=== PATIENT | female | born 1965 | race Caucasian/White ===

== ENCOUNTER 2019-03-09 12:34 | Emergency (ER) | payer MEDICAID, OTHER ==
[~2019-03-09] VITALS: Ht 167.6 cm; Wt 63.5 kg
[2019-03-09] MEDS ORDERED: SODIUM CHLORIDE 0.9% 1,000 ML IV ONE ×2 (12:57)
[2019-03-09] MEDS ORDERED: diphenhdrAMINE HCL 50 MG/1 ML VL IV ONE (13:00)
[2019-03-09 13:29] LABS: Basophils # (auto) 0 uL; Basophils % (auto) 0.2 % (0.0-2.0); Eosinophils # (auto) 0 uL; Hematocrit 36.7 % (36.0-46.0); Hemoglobin 11.9 g/dL (12.2-16.2); Lymphocytes % (auto) 6.9 % (10.0-50.0); Mean Corpuscular Hemoglobin 28.3 pg (28.0-32.0); Mean Corpuscular Hgb Conc. 32.4 g/dL (32.0-36.0); Mean Corpuscular Volume 87.2 fL (80.0-100.0); Monocytes # (auto) 0.6 uL; Monocytes % (auto) 3.9 % (0.0-12.0); Neutrophils # (auto) 12.6 uL; Platelet Count (auto) 316 10^3/uL (140-450); Red Blood Cells 4.21 10^6/uL (4.0-5.20); Red Cell Distribution Width 15.6 % (11.8-14.3); White Blood Cell 14.2 10^3/uL (4.4-10.8)
[2019-03-09 13:39] LABS: Albumin 4.1 g/dL (3.4-5.0); BUN/Creatinine Ratio 15.5; Calcium 8.4 mg/dL (8.5-10.1)
[2019-03-09 13:42] LABS: Bilirubin, Total 0.4 mg/dL (0.2-1.0); Total Protein 8.2 g/dL (6.4-8.2)
[2019-03-09] MEDS ORDERED: HALOPERIDOL LACTATE 5 MG/ML INJ VIAL ONE (13:45)
[2019-03-09 13:49] LABS: Urine Amorphous Crystal MOD /hpf (None Seen); Urine Bacteria MOD /hpf (None Seen); Urine Blood 3+ /uL (Negative); Urine Mucus FEW (None Seen); Urine Specific Gravity 1.014 (1.001-1.035); Urine WBC 191 /hpf (0 - 5); Urine WBC Clumps PRESENT /hpf (None Seen)
[2019-03-09 13:56] LABS: Potassium 2.7 mmol/L (3.5-5.1)
[2019-03-09 13:59] LABS: Barbiturate Scree,Urine NEGATIVE (NEGATIVE); Benzodiazephine Screen, Urine NEGATIVE (NEGATIVE); Cannabinoid Screen, Urine POSITIVE (NEGATIVE); Cocaine Screen, Urine NEGATIVE (NEGATIVE); Opiate Scree,Urine NEGATIVE (NEGATIVE); Phencyclidine Screen, Urine NEGATIVE (NEGATIVE)
[2019-03-09] MEDS ORDERED: LORazepam 2MG/ML-1ML VIAL IV ONE (14:00)
[2019-03-09] MEDS ORDERED: POTASSIUM EFFERVESENT TAB 25 MEQ PO ONE (14:15)
[2019-03-09 14:17] LABS: Amphetamine Screen, Urine POSITIVE (NEGATIVE)
[2019-03-09] MEDS ORDERED: POTASSIUM CHL 20MEQ/100ML 100 ML IV ONE (14:30)
[2019-03-09] MEDS ORDERED: LABETALOL HCL 5 MG/ML ML 20ML VIAL IV ONE (14:30)
[2019-03-09] MEDS ORDERED: MIDAZOLAM DRIP 50 mg/50mL 50 ML IV ONE (14:41)
[2019-03-09] MEDS ORDERED: ETOMIDATE (2MG/ML) 20ML VIAL IV ONE ×2 (14:42→15:15)
[2019-03-09] MEDS ORDERED: SUCCINYLCHOLINE CHLORIDE 20 MG/ML 10ML VIAL IV ONE ×2 (14:42→15:15)
[2019-03-09] MEDS ORDERED: PROPOFOL 100 ML IV ONE (15:08)
[2019-03-09] MEDS ORDERED: MIDAZOLAM DRIP 50 mg/50mL 50 ML IV SCH (15:10)
[2019-03-09] MEDS ORDERED: PROPOFOL 100 ML IV SCH (15:10)
[2019-03-09 15:16] VITALS: BP 136/82
[2019-03-09] MEDS ORDERED: HALOPERIDOL LACTATE 5 MG/ML INJ VIAL IM ONE (15:30)
== END 2019-03-09 15:46 | disposition short-term general hospital (02) ==
LOC: EDBD 12:34 → ER 12:42
DX: I60.9 Nontraumatic subarachnoid hemorrhage, unspecified (principal); F15.99 Other stimulant use, unspecified with unspecified stimulant-induced disorder; E86.0 Dehydration
CPT/HCPCS: 31500; 36415; 70450; 71045; 80053; 80307; 81001; 85025; 93005; 96361; 96372; 96374; 99291; J0330; J1200; J1630; J2250; J2704; J3480; J7030

== ENCOUNTER 2021-10-09 08:21 | Emergency (ER) | payer MEDICAID ==
[~2021-10-09] VITALS: Ht 170.2 cm; Wt 63.5 kg
[2021-10-09 08:33] VITALS: BP 147/96
[2021-10-09] MEDS ORDERED: LORazepam 2MG/ML-1ML VIAL IV ONE (08:45)
[2021-10-09] MEDS ORDERED: SODIUM CHLORIDE 0.9% 1,000 ML IV ONE ×2 (08:45)
[2021-10-09 10:49] LABS: Albumin 3.3 g/dL (3.4-5.0); Potassium 4.3 mmol/L (3.5-5.1)
[2021-10-09 10:53] LABS: BUN/Creatinine Ratio 20.9; Bilirubin, Total 0.8 mg/dL (0.2-1.0)
== END 2021-10-09 18:07 | disposition left against medical advice (07) ==
LOC: ER 08:21
DX: R10.84 Generalized abdominal pain (principal); F15.10 Other stimulant abuse, uncomplicated
CPT/HCPCS: 36415; 80053; 93005

== ENCOUNTER 2022-01-04 07:39 | Emergency (ER) | payer BC, MEDICAID ==
[~2022-01-04] VITALS: Ht 170.2 cm; Wt 67.8 kg
[2022-01-04 07:48] VITALS: BP 154/100
[2022-01-04] MEDS ORDERED: ACETAMINOPHEN 325 MG TAB PO ONE (08:30)
== END 2022-01-04 13:47 | disposition left against medical advice (07) ==
LOC: ER 07:39
DX: R51.9 Headache, unspecified (principal); F15.10 Other stimulant abuse, uncomplicated; I10 Essential (primary) hypertension; E78.5 Hyperlipidemia, unspecified; F17.210 Nicotine dependence, cigarettes, uncomplicated; F12.10 Cannabis abuse, uncomplicated
CPT/HCPCS: 70450

== ENCOUNTER 2022-11-04 19:19 | Emergency (ER) | payer OTHER, MEDICAID ==
[~2022-11-04] VITALS: Ht 170.2 cm; Wt 63.6 kg
[2022-11-04] MEDS ORDERED: cloNIDine HCL 0.1 MG TAB PO ONE (20:15)
[2022-11-04] MEDS ORDERED: ONDANSETRON HCL 4 MG/2 ML VIAL IM ONE ×2 (20:15→22:00)
[2022-11-04] MEDS ORDERED: HYDROmorphone HCL 2 MG/ML VL/or syr IM ONE (20:15)
[2022-11-04 21:33] LABS: Basophils # (auto) 0 10 ^3/uL (0-0.2); Basophils % (auto) 0.6 % (0.0-2.0); Eosinophils # (auto) 0.1 10 ^3/uL (0-0.8); Eosinophils % (auto) 1.2 % (0.0-7.0); Hematocrit 44.6 % (36.0-46.0); Hemoglobin 15.2 g/dL (12.2-16.2); Lymphocytes # (auto) 1.9 10 ^3/uL (0.4-5.4); Mean Corpuscular Hemoglobin 31.8 pg (28.0-32.0); Mean Corpuscular Hgb Conc. 34.1 g/dL (32.0-36.0); Mean Corpuscular Volume 93.4 fL (80.0-100.0); Monocytes # (auto) 0.5 10 ^3/uL (0-1.3); Monocytes % (auto) 8.8 % (0.0-12.0); Neutrophils # (auto) 3.7 10 ^3/uL (1.6-8.6); Neutrophils % (auto) 59.4 % (37.0-80.0); Nucleated Red Blood Cells % 0.1 %; Red Blood Cells 4.77 10^6/uL (4.0-5.20); Red Cell Distribution Width 12.6 % (11.8-14.3); White Blood Cell 6.3 10^3/uL (4.4-10.8)
[2022-11-04 21:46] LABS: Albumin 4.1 g/dL (3.4-5.0); Calcium 9.7 mg/dL (8.5-10.1); Potassium 3.8 mmol/L (3.5-5.1)
[2022-11-04 21:50] LABS: BUN/Creatinine Ratio 16.5 (10.0-20.0); Bilirubin, Total 0.3 mg/dL (0.2-1.0); Total Protein 8.1 g/dL (6.4-8.2)
[2022-11-04] MEDS ORDERED: hydrALAZINE HCL 10 MG TAB PO ONE (22:00)
[2022-11-04] MEDS ORDERED: METOCLOPRAMIDE HCL 5MG/ml INJ 2ml VIAL IV ONE (23:00)
[2022-11-04] MEDS ORDERED: hydrALAZINE HCL 20 MG/ML VL IV ONE (23:00)
[2022-11-05] MEDS ORDERED: SODIUM CHLORIDE 0.9% 500 ML IV ONE
[2022-11-05] MEDS ORDERED: LISI20TA56 PO (00:18)
[2022-11-05] MEDS ORDERED: METO-281 PO (00:18)
[2022-11-05] MEDS ORDERED: CLON0.2T PO (00:18)
[2022-11-05] MEDS ORDERED: hydrALAZINE HCL 20 MG/ML VL IV ONE (01:00)
[2022-11-05 05:14] LABS: Urine Amorphous Crystal FEW /hpf (None Seen); Urine Bacteria MOD /hpf (None Seen); Urine Blood Negative /uL (Negative); Urine Mucus FEW (None Seen); Urine Specific Gravity 1.014 (1.001-1.035); Urine WBC 71 /hpf (0 - 5)
[2022-11-05 05:25] LABS: Alcohol, Urine < 3.0 mg/dL (0-10); Amphetamine Screen, Urine POSITIVE (NEGATIVE); Barbiturate Scree,Urine NEGATIVE (NEGATIVE); Benzodiazephine Screen, Urine NEGATIVE (NEGATIVE); Cocaine Screen, Urine NEGATIVE (NEGATIVE)
[2022-11-05 05:33] LABS: Cannabinoid Screen, Urine POSITIVE (NEGATIVE); Opiate Scree,Urine NEGATIVE (NEGATIVE); Phencyclidine Screen, Urine NEGATIVE (NEGATIVE)
[2022-11-05] MEDS ORDERED: PHEN95TA10 PO (05:35)
[2022-11-05] MEDS ORDERED: CEPH500T PO (05:35)
[2022-11-05 05:39] VITALS: BP 106/54
[2022-11-05] MEDS ORDERED: PHENAZOPYRIDINE HCL 100 MG TAB PO ONE (05:45)
[2022-11-05] MEDS ORDERED: CEPHALEXIN 250 MG CAP PO ONE (05:45)
== END 2022-11-05 06:03 | disposition home or self-care (01) ==
LOC: ER 19:23
DX: I16.0 Hypertensive urgency (principal); F15.90 Other stimulant use, unspecified, uncomplicated; R51.9 Headache, unspecified; R53.1 Weakness; I10 Essential (primary) hypertension; F17.210 Nicotine dependence, cigarettes, uncomplicated
CPT/HCPCS: 36415; 70450; 73130; 80053; 80307; 81001; 85025; 96361; 96372; 96374; 96375; 96376; 99285; J0360; J1170; J2405; J2765; J7040; 96360

== ENCOUNTER 2023-04-04 15:19 | Emergency (ER) | payer MEDICAID, OTHER ==
[~2023-04-04] VITALS: Ht 170.2 cm; Wt 60.6 kg
[~2023-04-04 15:19] MED LIST: CEPH500T PO; CLON0.2T PO; LISI20TA56 PO; METO-281 PO; PHEN95TA10 PO
[2023-04-04 15:30] VITALS: BP 171/73; PULSE 85; RESP 18; TEMP 97.1; O2SAT 99
[2023-04-04] MEDS ORDERED: PRED20TA2 PO (17:23)
[2023-04-04] MEDS ORDERED: TRIA37.587 PO (17:23)
[2023-04-04] MEDS ORDERED: NAPR-746 PO (17:23)
== END 2023-04-04 17:58 | disposition home or self-care (01) ==
LOC: ER 15:19
DX: S62.632A Displaced fracture of distal phalanx of right middle finger, initial encounter for closed fracture (principal); M19.041 Primary osteoarthritis, right hand; B43.2 Subcutaneous pheomycotic abscess and cyst; E78.5 Hyperlipidemia, unspecified; I10 Essential (primary) hypertension; F17.210 Nicotine dependence, cigarettes, uncomplicated; F12.10 Cannabis abuse, uncomplicated; F15.10 Other stimulant abuse, uncomplicated; Z76.0 Encounter for issue of repeat prescription; Z98.51 Tubal ligation status; X58.XXXA Exposure to other specified factors, initial encounter; Y93.89 Activity, other specified; Y92.89 Other specified places as the place of occurrence of the external cause; Y99.8 Other external cause status
CPT/HCPCS: 29130; 73130